=== PATIENT | male | born 1955 | race Caucasian/White ===

== ENCOUNTER 2016-05-31 10:49 | Emergency (ER) | payer BC, OTHER ==
[2016-05-31 10:58] VITALS: BP 121/75
[2016-05-31] MEDS ORDERED: ASPIRIN 81 MG TABLET, CHEWABLE PO ONE (11:17)
--- NOTE | 2016-05-31 11:19 | ER Document Report ---
ED Medical Screen (RME) - General Stated Complaint: LIGHTHEADED,ABDOMINAL PAIN Time seen by provider: 11:15 Mode of Arrival: Ambulatory Information source: Patient Notes: 60 yo male with CAD, stent lsat july, TRAVEL OUTSIDE OF THE [place] IN LAST 30 DAYS: No - Related Data Allergies/Adverse Reactions: No Known Allergies Allergy (Verified 05/31/16 11:11) Past Medical History - Past Medical History Cardiac Medical History: Reports: Hx Coronary Artery Disease, Hx Heart Attack Past Surgical History: Reports: Hx Cardiac Catheterization - steny, Hx Orthopedic Surgery - back Physical Exam - Vital signs Vitals: Temp Pulse Resp BP Pulse Ox 97.8 F 83 16 121/75 96 05/31/16 10:57 05/31/16 10:57 05/31/16 10:57 05/31/16 10:57 05/31/16 10:57 Course - Vital Signs Vital signs: Temp Pulse Resp BP Pulse Ox 97.8 F 83 16 121/75 96 05/31/16 10:57 05/31/16 10:57 05/31/16 10:57 05/31/16 10:57 05/31/16 10:57
[2016-05-31 11:34] LABS: ABSOLUTE EOSINOPHILS # (AUTO) 0.1 10^3/uL (0.0-0.6); ABSOLUTE LYMPHOCYTES (AUTO) 2.8 10^3/uL (0.5-4.7); ABSOLUTE MONOCYTES (AUTO) 0.6 10^3/uL (0.1-1.4); ABSOLUTE NEUT (AUTO) 7.1 10^3/uL (1.7-8.2); BASOPHILS % (AUTO) 0.5 % (0-2); EOSINOPHILS % (AUTO) 0.5 % (0-6); HEMATOCRIT 42.9 % (37.9-51.0); HEMOGLOBIN 14.7 g/dL (13.5-17.0); HGB HCT DIFFERENCE 1.2; LYMPHOCYTES % (AUTO) 26.2 % (13-45); MEAN CORPUSCULAR HEMOGLOBIN 32.3 pg (27.0-33.4); MEAN CORPUSCULAR HGB CONC 34.3 g/dL (32.0-36.0); MEAN CORPUSCULAR VOLUME 94 fl (80-97); MONOCYTES % (AUTO) 5.5 % (3-13); RED BLOOD COUNT 4.56 10^6/uL (4.35-5.55); RED CELL DISTRIBUTION WIDTH 13.4 % (11.5-14.0); SEGMENTED NEUTROPHILS % (AUTO) 67.3 % (42-78); WHITE BLOOD COUNT 10.6 10^3/uL (4.0-10.5)
[2016-05-31 11:55] LABS: ALANINE AMINOTRANSFERASE 37 U/L (21-72); ALBUMIN 3.9 g/dL (3.5-5.0); ALKALINE PHOSPHATASE 86 U/L (38-126); ANION GAP 10 (5-19); ASPARTATE AMINO TRANSFERASE 24 U/L (17-59); BILIRUBIN,TOTAL 1.2 mg/dL (0.2-1.3); BLOOD UREA NITROGEN 10 mg/dL (7-20); CALCIUM 9.5 mg/dL (8.4-10.2); CARBON DIOXIDE 23 mmol/L (22-30); CHLORIDE 107 mmol/L (98-107); CREATINE KINASE 171 U/L (55-170); CREATININE RESULT 0.86 mg/dL (0.52-1.25); GLUCOSE 109 mg/dL (75-110); LIPASE 31.6 U/L (23-300); POTASSIUM 4.3 mmol/L (3.6-5.0); SODIUM 140.1 mmol/L (137-145); TOTAL PROTEIN 6.5 g/dL (6.3-8.2)
[2016-05-31 11:58] LABS: APPEARANCE,URINE CLEAR; BILIRUBIN,URINE NEGATIVE (NEGATIVE); GLUCOSE, URINE NEGATIVE (NEGATIVE); KETONES,URINE 20 mg/dL (NEGATIVE); LEUKOCYTE ESTERASE,URINE NEGATIVE (NEGATIVE); NITRITE,URINE NEGATIVE (NEGATIVE); PROTEIN,URINE NEGATIVE (NEGATIVE); URINE SPECIFIC GRAVITY 1.012; UROBILINOGEN,URINE NEGATIVE mg/dL (<2.0)
[2016-05-31 12:08] LABS: TROPONIN I < 0.012 ng/mL
[2016-05-31] MEDS ORDERED: METOCLOPRAMIDE HCL ORAL SOLN 10 MG/10 ML UDCUP PO ONE (12:55)
[2016-05-31] MEDS ORDERED: MAG HYDROX/AL HYDROX/SIMETH SUSP 30 ML UDCUP PO ONE (12:55)
[2016-05-31] MEDS ORDERED: LIDOCAINE 2% VISCOUS SOLN 20 ML UDCUP PO ONE (12:56)
--- NOTE | 2016-05-31 12:59 | EKG REPORT ---
SEVERITY:- ABNORMAL ECG - SINUS RHYTHM LEFT BUNDLE BRANCH BLOCK : Confirmed by: Inocencia Feliz 31-May-2016 12:58:30
--- NOTE | 2016-05-31 13:01 | ER Document Report ---
ED GI/ - General Chief Complaint: Abdominal Pain >50 Stated Complaint: LIGHTHEADED,ABDOMINAL PAIN Time seen by provider: 12:53 Mode of Arrival: Ambulatory Notes: 60-year-old male presents to ED for abdominal pain acid reflux this spreads out across his abdomen goes up to his esophagus and then goes back down to across his chest. States he had his last good bowel movement on Monday but since then has been small bowel movements. States he gets very frustrated because every time he comes to the hospital they always want to do everything for his chest and don't examine his belly but it was wrong with his belly. TRAVEL OUTSIDE OF THE [place] IN LAST 30 DAYS: No - HPI Patient complains to provider of: Abdominal pain, Other - States he feels achy as acid reflux, and up to his throat and then down his chest and across his abdomen Onset: Last week - States it has been coming and going for several weeks Timing/Duration: Intermittent Quality of pain: Burning, Cramping Severity at maximum: Moderate Severity in ED: Mild Pain Level: 2 Location: Epigastric, LUQ, LLQ, RUQ, RLQ Associated symptoms: Chest pain - Esophageal pain, Nausea, Other - States he has a burning sharp pain that goes up his esophagus and then back down across his chest and abdomen Exacerbated by: Food Relieved by: Denies Similar symptoms previously: Yes Recently seen / treated by doctor: Yes - Related Data Allergies/Adverse Reactions: No Known Allergies Allergy (Verified 05/31/16 11:11) Past Medical History - General Information source: Patient - Social History Smoking Status: Current Every Day Smoker Cigarette use (# per day): Yes - three fourths pack per day Chew tobacco use (# tins/day): No Smoking Education Provided: Yes - less than 2 minutes Frequency of alcohol use: None Drug Abuse: None Lives with: Family Family History: Reviewed & Not Pertinent Patient has suicidal ideation: No Patient has homicidal ideation: No - Past Medical History Cardiac Medical History: Reports: Hx Coronary Artery Disease, Hx Heart Attack Pulmonary Medical History: Reports: None EENT Medical History: Reports: None Neurological Medical History: Reports: None Endocrine Medical History: Reports: None Renal/ Medical History: Reports: None GI Medical History: Reports: Hx Gastritis, Hx Gastroesophageal Reflux Disease Musculoskeltal Medical History: Reports None Skin Medical History: Reports None Psychiatric Medical History: Reports: None Traumatic Medical History: Reports: None Infectious Medical History: Reports: None Past Surgical History: Reports: Hx Cardiac Catheterization - steny, Hx Orthopedic Surgery - back Review of Systems - Review of Systems Constitutional: No symptoms reported EENT: No symptoms reported Cardiovascular: Chest pain Respiratory: No symptoms reported Gastrointestinal: Abdomen distended, Abdominal pain Genitourinary: No symptoms reported Male Genitourinary: No symptoms reported Musculoskeletal: No symptoms reported Skin: No symptoms reported Hematologic/Lymphatic: No symptoms reported Neurological/Psychological: No symptoms reported Physical Exam - Vital signs Vitals: Temp Pulse Resp BP Pulse Ox 97.8 F 83 16 121/75 96 05/31/16 10:57 05/31/16 10:57 05/31/16 10:57 05/31/16 10:57 05/31/16 10:57 Interpretation: Normal - General General appearance: Appears well, Alert - HEENT Head: Normocephalic, Atraumatic Eyes: Normal Pupils: PERRL - Respiratory Respiratory status: No respiratory distress Chest status: Nontender Breath sounds: Normal Chest palpation: Normal - Cardiovascular Rhythm: Regular Heart sounds: Normal auscultation Murmur: No - Abdominal Inspection: Normal Distension: No distension Bowel sounds: Normal Tenderness: Tender - Epigastric pain. No: McBurney's point, Lebron's sign, Guarding, Rebound Organomegaly: No organomegaly - Back Back: Normal, Nontender - Extremities General upper extremity: Normal inspection, Nontender, Normal color, Normal ROM , Normal temperature General lower extremity: Normal inspection, Nontender, Normal color, Normal ROM , Normal temperature, Normal weight bearing. No: Sarah's sign - Neurological Neuro grossly intact: Yes Cognition: Normal Orientation: AAOx4 [place] Coma Scale Eye Opening: Spontaneous Franky Coma Scale Verbal: Oriented Franky Coma Scale Motor: Obeys Commands [place] Coma Scale Total: 15 Speech: Normal Motor strength normal: LUE, RUE, LLE, RLE Sensory: Normal - Psychological Associated symptoms: Normal affect, Normal mood - Skin Skin Temperature: Warm Skin Moisture: Dry Skin Color: Normal Course - Re-evaluation Re-evalutation: 05/31/16 18:01 Discussed patient's assessment with Dr. Mensah after receiving instructions CT of the abdomen and pelvis was ordered. CT abdomen and pelvis was negative discussed the results of the CT x-ray and labs with patient and written reports given to patient and patient instructed to please follow-up with her primary doctor and GI within the next week. Patient stated he would go straight to his primary doctor on the way home and have them start a referral to GI. - Vital Signs Vital signs: Temp Pulse Resp BP Pulse Ox 97.8 F 83 16 121/75 96 05/31/16 10:57 05/31/16 10:57 05/31/16 10:57 05/31/16 10:57 05/31/16 10:57 - Laboratory Result Diagrams: 05/31/16 11:28 05/31/16 11:28 Laboratory results interpreted by me: 05/31/16 05/31/16 05/31/16 11:28 11:28 11:42 WBC 10.6 H Creatine Kinase 171 H Urine Ketones 20 H Urine Blood SMALL H - Diagnostic Test Radiology reviewed: Image reviewed, Reports reviewed Discharge - Discharge Clinical Impression: Upper abdominal pain Condition: Stable Disposition: HOME, SELF-CARE Instructions: Evaluation of Upper Abdominal Pain ([facility]) Additional Instructions: ABDOMINAL PAIN: There are many causes of abdominal pain. Pain can mean a serious problem requiring surgery (such as appendicitis). It can also be an innocent problem that goes away on its own (such as a viral infection). Often, time must pass to determine the cause of pain. The physician does not feel that hospitalization is necessary, at present. Things may change within the next 24 hours. Call the doctor or come back for re- examination if any problems occur, such as: (1) Pain that becomes more severe, steady, or becomes concentrated in one specific area. Also, pain that is more severe with movement or coughing. (2) Vomiting that persists or becomes more frequent. (3) Blood in the vomitus, urine, or bowel movements. Blood in the stool may have a tarry or black appearance. (4) Shaking chills or fever greater than 100 degrees F. (5) The abdomen becomes more distended or swollen. (6) Bowel movements cease. (7) Failure to improve as expected. Antacid Therapy You have been instructed to start antacid therapy. Antacids directly neutralize stomach acid. This is useful for acid irritation of the esophagus, gastritis, and ulcers. You should take two tablespoons of antacid one hour after each meal and three hours after each meal. If you are not eating, take the antacid every two hours. If you are using a concentrate (such as Maalox TC), use only one tablespoon. Many antacids affect the bowels. The most common problem is diarrhea. In this case, a pure aluminum hydroxide antacid (such as AlternaGel) can be substituted for some or all doses. If the problem is constipation, add a teaspoon of Milk of Magnesia to each dose. Call the doctor if you experience continued diarrhea or constipation, or if you develop lightheadedness, bloody stool or vomitus, severe abdominal pain, or black stool. ANTINAUSEA MEDICATION: You have been given a medication to suppress nausea and vomiting. This type of medication can be given as a shot, pill, or suppository. It will usually last for many hours. Pills and shots usually last six to eight hours, suppositories last about 12 hours. For the typical illness, only one or two doses of the medication may be necessary. Mild lightheadedness may occur. This type of medicine can cause drowsiness. Do not drive or operate dangerous machinery while under its influence. Do not mix with alcohol. See your doctor at once if you have muscle spasms or tightness, or uncontrollable motions (particularly of the neck, mouth, or jaw). Persistent vomiting or severe lightheadedness should also be evaluated by the physician. Reglan (Metoclopramide) Reglan has been prescribed. This medicine affects the stomach and intestines. It can be used to treat nausea and vomiting, to prevent reflux of stomach acid up into the esophagus, or to increase the contractions of the stomach and intestines. It is often prescribed for esophagitis, and for paralysis of the stomach in diabetics. Reglan can cause either mild restlessness or drowsiness. You should contact the doctor at once if you become extremely restless, anxious, or cannot sleep, or if you develop uncontrollable motions of the lips, tongue, or jaw. Do not take alcohol with this medicine. Do not drive or operate machinery until you have been taking this medicine long enough to know how it affects you. Call the doctor if you develop abdominal pains, lightheadedness, black stool, or blood in the stool or vomitus. FOLLOW-UP CARE: If you have been referred to a physician for follow-up care, call the physician s office for an appointment as you were instructed or within the next two days. If you experience worsening or a significant change in your symptoms, notify the physician immediately or return to the Emergency Department at any time for re-evaluation. You need to follow up with your primary doctor today or tomorrow and get a follow-up with a container coordinator within the next week. Prescriptions: Metoclopramide HCl [Reglan 10 mg Tablet] 10 mg PO ACHS #30 tablet Ondansetron [Zofran Odt 4 mg Tablet] 1 tab PO Q6H #15 tab.rapdis Forms: Smoking Cessation Education, Return to Work
== END 2016-05-31 14:26 | disposition home or self-care (01) ==
LOC: ER 10:49
DX: R10.10 Upper abdominal pain, unspecified (principal); R10.9 Unspecified abdominal pain; R42 Dizziness and giddiness; F17.210 Nicotine dependence, cigarettes, uncomplicated
CPT/HCPCS: 93005; 99284; 36415; 82553; 82550; 83690; 85025; 80053; 81001; 84484; 71010; 74177; 93010; J3490

== ENCOUNTER 2016-06-14 14:26 | Observation (INO) | payer OTHER ==
[2016-06-14] MEDS ORDERED: ASPIRIN 81 MG TABLET, CHEWABLE PO ONE ×2 (14:29→14:47)
--- NOTE | 2016-06-14 14:46 | ER Document Report ---
ED Medical Screen (RME) - General Stated Complaint: CHEST PAIN Notes: Patient states he started experiencing midsternal chest pain about one hour ago. Does have a cardiac history, and has [address] No nausea or vomiting. No pain radiation. Patient states pain is relieved by belching. He states he was in the emergency room 2 weeks ago for gastrointestinal problems, had an endoscopy last . Patient states he found a couple of small red spots. Patient also complains of dizziness. Patient also has a defibrillator. I have greeted and performed a rapid initial assessment of this patient. A comprehensive ED assessment and evaluation of the patient, analysis of test results and completion of the medical decision making process will be conducted by additional ED providers. TRAVEL OUTSIDE OF THE [place] IN LAST 30 DAYS: No - Related Data Allergies/Adverse Reactions: No Known Allergies Allergy (Verified 05/31/16 11:11) Past Medical History - Past Medical History Cardiac Medical History: Reports: Hx Coronary Artery Disease, Hx Heart Attack Renal/ Medical History: Denies: Hx Peritoneal Dialysis GI Medical History: Reports: Hx Gastritis, Hx Gastroesophageal Reflux Disease Past Surgical History: Reports: Hx Cardiac Catheterization - steny, Hx Orthopedic Surgery - back Physical Exam - Vital signs Vitals: Temp Pulse Resp BP Pulse Ox 98.5 F 80 18 104/64 93 06/14/16 14:34 06/14/16 14:34 06/14/16 14:34 06/14/16 14:34 06/14/16 14:34 - Cardiovascular Rhythm: Other - irregular Course - Vital Signs Vital signs: Temp Pulse Resp BP Pulse Ox 98.5 F 80 18 104/64 93 06/14/16 14:34 06/14/16 14:34 06/14/16 14:34 06/14/16 14:34 06/14/16 14:34
--- NOTE | 2016-06-14 15:03 | ER Document Report ---
ED Cardiac <ALINE ANDERSON - Last Filed: 06/14/16 16:12> - General Mode of Arrival: Ambulatory Information source: Patient TRAVEL OUTSIDE OF THE [place] IN LAST 30 DAYS: No - HPI Patient complains to provider of: Chest pain, Shortness of breath Chest pain location: Substernal - radiates to bilateral chest Chest pain precipitating factors: Physical Exertion Cardiac risk factors: Smoker, Dyslipidemia Associated symptoms: Other - see HPI <OLIVERNAS - Last Filed: 06/14/16 17:05> - General Chief Complaint: Chest Pain Stated Complaint: CHEST PAIN Notes: 60 year old male with history of hyperlipidemia, coronary artery disease, and a cardiac stent (June 2015) presents to the ED complaining of dull intermittent chest pain and shortness of breath that started this afternoon at approximately 1330. Patient reports that this morning he woke up, blew his nose, and noticed a lot of blood. Patient became lightheaded shortly after and states that he felt "fuzzy" throughout most of the day. While at work, patient was exerting himself and he suddenly became short of breath and started having substernal chest pain that radiates to the bilateral chest. Patient also complains of feeling dizzy and describes the room "spinning" while waiting in the emergency room. Patient denies vomiting, nausea, diarrhea, cough, and cold symptoms. Patient explains that this is different form his past cardiac pain because his breathing is most concerning to him. Patient is on Aspirin and Plavix, but states he did not take his Plavix today. Patient was seen on 05/31/2016 for abdominal pain and was diagnosed with gastritis. Patient receives cardiac care at [facility] from Dr. Kwok in [place], [place]. (NAS BYOD) - Related Data Allergies/Adverse Reactions: No Known Allergies Allergy (Verified 06/14/16 14:45) Past Medical History - General Information source: Patient - Social History Smoking Status: Current Every Day Smoker Chew tobacco use (# tins/day): No Frequency of alcohol use: None Drug Abuse: None Family History: Reviewed & Not Pertinent Patient has suicidal ideation: No Patient has homicidal ideation: No - Past Medical History Cardiac Medical History: Reports: Hx Coronary Artery Disease, Hx Heart Attack, Hx Hypercholesterolemia Renal/ Medical History: Denies: Hx Peritoneal Dialysis GI Medical History: Reports: Hx Gastritis, Hx Gastroesophageal Reflux Disease Past Surgical History: Reports: Hx Cardiac Catheterization - stent (June 2015) , Hx Cardiac Surgery - Defibrillator 2003 (replaced in 2009), Hx Coronary Stent - June 2015, Hx Orthopedic Surgery - back <NAS BOYD - Last Filed: 06/14/16 17:05> Review of Systems - Review of Systems Constitutional: No symptoms reported EENT: No symptoms reported Cardiovascular: See HPI, Chest pain - substernal that radiates to bilateral chest, Dizziness, Lightheaded Respiratory: See HPI, Short of breath. denies: Cough Gastrointestinal: No symptoms reported. denies: Diarrhea, Nausea, Vomiting Genitourinary: No symptoms reported Male Genitourinary: No symptoms reported Musculoskeletal: No symptoms reported Skin: No symptoms reported Hematologic/Lymphatic: No symptoms reported Neurological/Psychological: No symptoms reported -: Yes All other systems reviewed and negative <NAS BOYD - Last Filed: 06/14/16 17:05> Physical Exam - General General appearance: Alert In distress: None - HEENT Head: Normocephalic, Atraumatic Eyes: Normal Extraocular movements intact: Yes Pupils: PERRL - Respiratory Respiratory status: No respiratory distress Chest status: Nontender Breath sounds: Decreased air movement - bilaterally, Wheezing - mild wheezing bilaterally Chest palpation: Normal - no chest wall tenderness to palpation - Cardiovascular Rhythm: Regular Heart sounds: Normal auscultation - Abdominal Inspection: Normal Distension: No distension Tenderness: Nontender - Back Back: Normal - Extremities General upper extremity: Normal inspection, Normal ROM General lower extremity: Normal inspection, Normal ROM. No: Edema Calf: Normal - no calf tenderness or edema, Nontender - Neurological Neuro grossly intact: Yes Cognition: Normal Orientation: AAOx4 Franky Coma Scale Eye Opening: Spontaneous [place] Coma Scale Verbal: Oriented Franky Coma Scale Motor: Obeys Commands Franky Coma Scale Total: 15 Speech: Normal - Psychological Associated symptoms: Normal affect, Normal mood - Skin Skin Temperature: Warm Skin Moisture: Dry Skin Color: Normal <NAS BOYD - Last Filed: 06/14/16 17:05> - Vital signs Vitals: Temp Pulse Resp BP Pulse Ox 98.5 F 80 18 104/64 93 06/14/16 14:34 06/14/16 14:34 06/14/16 14:34 06/14/16 14:34 06/14/16 14:34 Course - Laboratory Result Diagrams: 06/14/16 14:50 06/14/16 14:50 - EKG Interpretation by Me Rate: Normal Rhythm: NSR, Other - PVC's [place]/QRS: LBBB When compared to previous EKG there are: No significant change <ALINE ANDERSON - Last Filed: 06/14/16 16:12> - Laboratory Result Diagrams: 06/14/16 14:50 06/14/16 14:50 - Consults Dr. Edwards Time consulted: 17:00 <NAS BOYD - Last Filed: 06/14/16 17:05> - Vital Signs Vital signs: Temp Pulse Resp BP Pulse Ox 98.5 F 80 12 116/80 95 06/14/16 14:34 06/14/16 14:34 06/14/16 16:01 06/14/16 16:01 06/14/16 16:01 - Laboratory Laboratory results interpreted by me: 06/14/16 06/14/16 14:50 14:50 RBC 4.32 L Chloride 108 H Glucose 111 H Creatine Kinase 230 H - Consults Dr. Edwards Reason for consultation: 06/14/16 17:00 Patient was discussed with Dr. Edwards and advises to keep the patient at [facility] for a cardiac stress test and will discuss a transfer if patient's cardiac enzymes are positive. (NAS BOYD) Discharge - Discharge Admitting Provider: [facility] Unit Admitted: Telemetry <ALINE ANDERSON - Last Filed: 06/14/16 16:12> <NAS BOYD - Last Filed: 06/14/16 17:05> - Discharge Clinical Impression: Chest pain Condition: Serious Disposition: ADMITTED OBSERVATION Scribe Attestation: 06/14/16 16:14 I personally performed the services described in the documentation, reviewed and edited the documentation which was dictated to the scribe in my presence, and it accurately records my words and actions. (ALINE ANDERSON) Scribe Documentation - Scribe Written by Scribe:: Duyen Muir, 06/14/2016 1532 acting as scribe for :: Nathaly <NAS BOYD - Last Filed: 06/14/16 17:05>
[2016-06-14 15:09] LABS: ABSOLUTE BASOPHILS # (AUTO) 0.1 10^3/uL (0.0-0.2); ABSOLUTE EOSINOPHILS # (AUTO) 0.1 10^3/uL (0.0-0.6); ABSOLUTE LYMPHOCYTES (AUTO) 2.5 10^3/uL (0.5-4.7); ABSOLUTE MONOCYTES (AUTO) 0.7 10^3/uL (0.1-1.4); ABSOLUTE NEUT (AUTO) 6.8 10^3/uL (1.7-8.2); BASOPHILS % (AUTO) 0.7 % (0-2); EOSINOPHILS % (AUTO) 0.7 % (0-6); HEMATOCRIT 40.7 % (37.9-51.0); HGB HCT DIFFERENCE 1.3; LYMPHOCYTES % (AUTO) 24.8 % (13-45); MEAN CORPUSCULAR HEMOGLOBIN 32.5 pg (27.0-33.4); MEAN CORPUSCULAR HGB CONC 34.5 g/dL (32.0-36.0); MEAN CORPUSCULAR VOLUME 94 fl (80-97); MONOCYTES % (AUTO) 6.9 % (3-13); RED BLOOD COUNT 4.32 10^6/uL (4.35-5.55); RED CELL DISTRIBUTION WIDTH 13.5 % (11.5-14.0); SEGMENTED NEUTROPHILS % (AUTO) 66.9 % (42-78); WHITE BLOOD COUNT 10.1 10^3/uL (4.0-10.5)
[2016-06-14 15:23] LABS: ALANINE AMINOTRANSFERASE 37 U/L (21-72); ALBUMIN 3.8 g/dL (3.5-5.0); ALKALINE PHOSPHATASE 90 U/L (38-126); ANION GAP 11 (5-19); ASPARTATE AMINO TRANSFERASE 24 U/L (17-59); BILIRUBIN,DIRECT 0.3 mg/dL (0.0-0.4); BLOOD UREA NITROGEN 12 mg/dL (7-20); CALCIUM 9.6 mg/dL (8.4-10.2); CARBON DIOXIDE 22 mmol/L (22-30); CHLORIDE 108 mmol/L (98-107); CREATINE KINASE 230 U/L (55-170); CREATININE RESULT 0.96 mg/dL (0.52-1.25); GLUCOSE 111 mg/dL (75-110); POTASSIUM 4.3 mmol/L (3.6-5.0); SODIUM 141.1 mmol/L (137-145); TOTAL PROTEIN 6.6 g/dL (6.3-8.2)
[2016-06-14 15:35] LABS: CREATINE KINASE MB 1.18 ng/mL (<4.55); TROPONIN I < 0.012 ng/mL
--- NOTE | 2016-06-14 18:26 | EKG REPORT ---
SEVERITY:- ABNORMAL ECG - ATRIAL-PACED COMPLEXES MULTIPLE VENTRICULAR PREMATURE COMPLEXES LEFT BUNDLE BRANCH BLOCK : Confirmed by: Jerrod Peña MD 14-Jun-2016 18:26:16
[2016-06-14] MEDS ORDERED: ONDANSETRON HCL INJ/PF 4 MG/2 ML SDV IV PRN (18:27)
[2016-06-14] MEDS ORDERED: ACETAMINOPHEN 325 MG TABLET PO PRN (18:27)
[2016-06-14] MEDS ORDERED: NORMAL SALINE 1000 ML 1,000 ML IV PRN (18:27)
--- NOTE | 2016-06-14 19:02 | PDOC H&P ---
History of Present Illness Admission Date/PCP: 06/14/16 16:30 JERE RAMIREZ MD Patient complains of: Chest pain History of Present Illness: JESUS HERNANDEZ is a 60 year old male, with coronary artery disease, hyperlipidemia, a chronic smoker and has been dealing with chest discomfort over a few day's duration. 2 weeks ago he was diagnosed with upper respiratory tract infection in an urgent care where he was given decongestant , ciprofloxacin, and bronchodilators. His upper respiratory tract symptoms resolve however he started to develop bloating. This was subsequently followed by burning epigastric and chest discomfort intermittently. He went back to the urgent care and the prescribed medications were discontinued. However the patient continues to have the symptoms. Patient eventually saw his primary care physician where he was given Prilosec. His stomach upset improved but he started to feel dizzy and therefore he discontinued the medication. He went to the emergency room or the patient was given antacids. The patient continues to have bloating and epigastric discomfort and burning in the chest. Patient continues to have intermittent dizzy spells especially on standing up. The patient went to the emergency room. He was referred for observation. Other associated symptoms include shortness of breath but without any nausea or vomiting nor any palpitations. Past Medical History Past Medical History: Medication reconciliation pending verification from the patient's pharmacist. Cardiac Medical History: Reports: Coronary Artery Disease, Myocardial Infarction , Hyperlipidema GI Medical History: Reports: Gastroesophageal Reflux Disease, Other - Gastritis Past Surgical History Past Surgical History: Reports: Cardiac Catheterization - stent (June 2015), Coronary Stent - June 2015, Orthopedic Surgery - back Social History Information Source: Patient Smoking Status: Current Every Day Smoker Frequency of Alcohol Use: None Hx Recreational Drug Use: No Drugs: None Family History Family History: CAD, CVA, Malignancy Parental Family History Reviewed: Yes Children Family History Reviewed: Yes Sibling(s) Family History Reviewed.: Yes Medication/Allergy Allergies/Adverse Reactions: No Known Allergies Allergy (Verified 06/14/16 14:45) Review of Systems Constitutional: ABSENT: chills, fever(s), headache(s), weakness, weight gain, weight loss Eyes: ABSENT: visual disturbances Ears: ABSENT: hearing changes Nose, Mouth, and Throat: PRESENT: other - Occasional sinus congestion. ABSENT: mouth pain, sore throat Cardiovascular: PRESENT: chest pain. ABSENT: dyspnea on exertion, edema, orthropnea, palpitations Respiratory: PRESENT: dyspnea. ABSENT: cough, hemoptysis Gastrointestinal: PRESENT: abdominal pain - Epigastric area, bloating. ABSENT: constipation, diarrhea, hematemesis, hematochezia, nausea, vomiting Genitourinary: ABSENT: dysuria, hematuria Musculoskeletal: ABSENT: joint swelling Integumentary: ABSENT: rash, wounds Neurological: ABSENT: abnormal gait, abnormal speech, confusion, dizziness, focal weakness, syncope Psychiatric: ABSENT: anxiety, depression, homidical ideation, suicidal ideation Endocrine: ABSENT: cold intolerance, heat intolerance, polydipsia, polyuria Hematologic/Lymphatic: ABSENT: easy bleeding, easy bruising Physical Exam Vital Signs: Temp Pulse Resp BP Pulse Ox 98.5 F 80 12 116/80 95 06/14/16 14:34 06/14/16 14:34 06/14/16 16:01 06/14/16 16:01 06/14/16 16:01 General appearance: PRESENT: no acute distress, cooperative, well-developed, well-nourished Head exam: PRESENT: atraumatic, normocephalic Eye exam: PRESENT: conjunctiva pink, EOMI, PERRLA. ABSENT: scleral icterus Ear exam: PRESENT: normal external ear exam. ABSENT: drainage Mouth exam: PRESENT: moist, neck supple, tongue midline Neck exam: ABSENT: carotid bruit, JVD, lymphadenopathy, thyromegaly Respiratory exam: PRESENT: clear to auscultation cesar. ABSENT: rales, rhonchi, wheezes Cardiovascular exam: PRESENT: RRR, +S1, +S2. ABSENT: diastolic murmur, rubs, systolic murmur Pulses: PRESENT: normal dorsalis pedis pul Vascular exam: PRESENT: normal capillary refill GI/Abdominal exam: PRESENT: normal bowel sounds, soft. ABSENT: distended, guarding, mass, organolmegaly, rebound, tenderness Rectal exam: PRESENT: deferred Extremities exam: PRESENT: full ROM. ABSENT: calf tenderness, clubbing, pedal edema Neurological exam: PRESENT: alert, awake, oriented to person, oriented to place , oriented to time, oriented to situation Psychiatric exam: PRESENT: appropriate affect, normal mood. ABSENT: homicidal ideation, suicidal ideation Skin exam: PRESENT: dry, intact, warm. ABSENT: cyanosis, rash Results Impressions: Chest X-Ray 06/14/16 14:29 IMPRESSION: Borderline cardiac enlargement without significant pulmonary vascular congestion. No focal infiltrate. Assessment & Plan - Diagnosis (1) Chest pain Qualifiers: Chest pain type: unspecified Qualified Code(s): R07.9 - Chest pain, unspecified Is this a current diagnosis for this admission?: Yes (2) Coronary artery disease Qualifiers: Coronary Disease-Associated Artery/Lesion type: [place] artery [place] vs. transplanted heart: [place] heart Associated angina: angina presence unspecified Qualified Code(s): I25.10 - Atherosclerotic heart disease of [place] coronary artery without angina pectoris Is this a current diagnosis for this admission?: Yes (3) Hyperlipidemia Qualifiers: Hyperlipidemia type: unspecified Qualified Code(s): E78.5 - Hyperlipidemia, unspecified Is this a current diagnosis for this admission?: Yes (4) Gastroesophageal reflux disease Qualifiers: Esophagitis presence: esophagitis presence not specified Qualified Code(s): K21.9 - Gastro-esophageal reflux disease without esophagitis Is this a current diagnosis for this admission?: Yes (5) Tobacco abuse Is this a current diagnosis for this admission?: Yes - Time Time Spent: 30 to 50 Minutes - Plan Summary Plan Summary: The patient will be admitted to observation. Patient will be on antiplatelet therapy with aspirin, as well as Plavix which he is already taking. In the meantime we will put the patient on oxygen, DVT prophylaxis with Lovenox, obtain serial cardiac enzymes and if negative proceed with a stress test. We will interrogate AICD, and consult cardiology. Further testing depends on the initial evaluation as outlined above.
[2016-06-14] MEDS ORDERED: ENOXAPARIN SODIUM INJ 40 MG/0.4 ML DISP.SYRIN SUBCUT ONE (19:30)
[2016-06-14] MEDS ORDERED: MECLIZINE HCL 12.5 MG TABLET PO PRN (20:13)
--- NOTE | 2016-06-14 20:20 | PDOC CONSULTATION ---
Consultation Consult Date: 06/14/16 Attending physician:: JERE RAMIREZ Consult reason:: Chest pain and dizziness History of Present Illness Admission Date/PCP: 06/14/16 18:27 JERE RAMIREZ MD Patient complains of: Chest pain and dizziness History of Present Illness: JESUS HERNANDEZ is a 60 year old male, with coronary artery disease, hyperlipidemia, a chronic smoker and has been dealing with chest discomfort over a few day's duration. 2 weeks ago he was diagnosed with upper respiratory tract infection in an urgent care where he was given decongestant , ciprofloxacin, and bronchodilators. His upper respiratory tract symptoms resolve however he started to develop bloating. This was subsequently followed by burning epigastric and chest discomfort intermittently. He went back to the urgent care and the prescribed medications were discontinued. However the patient continues to have the symptoms. Patient eventually saw his primary care physician where he was given Prilosec. His stomach upset improved but he started to feel dizzy and therefore he discontinued the medication. The patient continues to have bloating and epigastric discomfort and burning in the chest. Patient continues to have intermittent dizzy spells especially on standing up, symptoms of dizziness is worse preventing him from going to work. He therefore presented to the emergency room. Other associated symptoms include shortness of breath but without any nausea or vomiting nor any palpitations. This history was reviewed, confirmed and supplemented. Patient does give history of coronary stent placement, a defibrillator placement. His defibrillator was checked in June and was noted to be functioning normally. Past Medical History Cardiac Medical History: Reports: Coronary Artery Disease, Myocardial Infarction , Hyperlipidema GI Medical History: Reports: Gastroesophageal Reflux Disease, Other - Gastritis Past Surgical History Past Surgical History: Reports: Cardiac Catheterization - stent (June 2015), Coronary Stent - June 2015, Orthopedic Surgery - back Social History Information Source: Patient Smoking Status: Current Every Day Smoker Frequency of Alcohol Use: None Hx Recreational Drug Use: No Drugs: None - Advance Directive Resuscitation Status: Full Code Surrogate healthcare decision maker:: Patient's is the surrogate decision maker Family History Family History: CAD, CVA, Malignancy Parental Family History Reviewed: Yes Children Family History Reviewed: Yes Sibling(s) Family History Reviewed.: Yes - Family history of premature CAD noted Medication/Allergy Home Medications: Aspirin [Aspirin 81 mg Chewable Tablet] 81 mg PO DAILY 06/14/16 Atorvastatin Calcium 40 mg PO DAILY 06/14/16 Clopidogrel Bisulfate [Clopidogrel] 75 mg PO DAILY 06/14/16 Isosorbide Mononitrate [Isosorbide Mononitrate ER] 30 mg PO DAILY 06/14/16 Lisinopril 10 mg PO DAILY 06/14/16 Metoprolol Succinate 25 mg PO DAILY 06/14/16 Multivit-Min/FA/Lycopen/Lutein [Men 50 Plus Multivitamin Tab] 1 tab PO DAILY [place]-3/Dha/Epa/Fish Oil [Fish Oil 1,000 mg Softgel] 1,000 mg PO DAILY 06/14/16 Lansoprazole [Prevacid 30 mg Odt Tablet] 30 mg PO BID@0600,1700 #60 tab. 06/15/16 Allergies/Adverse Reactions: No Known Allergies Allergy (Verified 06/14/16 14:45) Review of Systems Review of Systems: Please see history of present illness and past medical history as wall. Constitutional: No fever or chills reported. Head : No recent chronic headaches, recent head injury. Eyes: No recent eye pain, diplopia, redness, discharge, acute visual changes. Ears: No recent chronic ear pain, acute hearing loss, ear discharge. Oral cavity: No recent ulcerations, bleeding, oral cavity discomfort. Neck: No recent acute neck pain reported. Hematologic: No recent easy bruising or bleeding or hematologic malignancy reported. Lymphatic: No recent lymphatic malignancy, chronic lymphadenopathy reported yet Cardiovascular system review: See history of present illness. Respiratory system review: No recent chronic cough, hemoptysis, blood clots in the lungs reported. Mild Shortness of breath on exertion Gastrointestinal system review: Negative for any recent acute or chronic abdominal pain, hematemesis, melena, recent change in bowel habits. Genitourinary system review: No recent acute or chronic hematuria, flank pain, UTI etc. reported. Skin system review: Negative for any recent abnormal bruising, no rash, no pruritus reported. Neurologic: No prior history of strokes, mini strokes, seizure disorder. Psychologic: No history of major psychosis or major depression reported. Musculoskeletal: Minor aches and pains reported. No acute joint swelling reported. Endocrine: No recent polyuria, polydipsia, recent heat or cold intolerance. Physical Exam Vital Signs: Temp Pulse Resp BP Pulse Ox 98.5 F 80 16 121/68 93 06/14/16 14:34 06/14/16 14:34 06/14/16 20:00 06/14/16 19:01 06/14/16 20:00 Exam: GENERAL: well-nourished and in no acute distress. Alert and oriented x3 HEAD: Atraumatic, normocephalic. EYES: Pupils equal round and reactive to light, extraocular movements intact, sclera anicteric, conjunctiva are normal. ENT: TMs normal, nares patent, oropharynx clear without exudates. Moist mucous membranes. No oral ulcerations or bleeding gums noted NECK: supple without lymphadenopathy. Trachea is central. No cervical or axillary lymphadenopathy noted. Carotids are 2+, JVD WNL LUNGS: Respiration seems nonlabored, no significant accessory muscle action noted. Breath sounds clear to auscultation bilaterally and equal noted. No wheezes rales or rhonchi noted. No significant dullness noted on percussion. CHEST: Palpation of the chest wall shows no significant chest wall tenderness. No other significant abnormalities noted. Defibrillator noted on the left side. HEART: [place] PULLER OUT, No PSH, 1/6 BARBAR[place] aortic area, 1/6 [place] systolic murmur mitral area, no rubs, no gallops. ABDOMEN: Soft, no significant tenderness appreciated, normoactive bowel sounds. No guarding, no rebound. No rigidity noted . No masses appreciated. EXTREMITIES: Pedal pulses are 1-2+, no calf tenderness noted. No clubbing or cyanosis.trace to 1+ pedal edema noted NEUROLOGICAL: Focused neurological exam showed no significant neurologic deficit. Normal speech, no focal weakness appreciated. PSYCH: Normal mood, normal affect. Judgment and insight within normal limits. SKIN: No significant ecchymosis, rash, ulcerations or signs of pruritus noted. MUSCULOSKELETAL EXAM: No significant joint swelling noted. Results Laboratory Results: 06/14/16 06/14/16 19:00 19:00 Creatine Kinase 219 H Troponin I < 0.012 EKG Comments: Atrial paced rhythm, left axis deviation, nonspecific IVCD Impressions: Chest X-Ray 06/14/16 14:29 IMPRESSION: Borderline cardiac enlargement without significant pulmonary vascular congestion. No focal infiltrate. Assessment & Plan - Diagnosis (1) Chest pain Qualifiers: Chest pain type: unspecified Qualified Code(s): R07.9 - Chest pain, unspecified Is this a current diagnosis for this admission?: Yes (2) Dizziness Is this a current diagnosis for this admission?: Yes (3) Coronary artery disease Qualifiers: Coronary Disease-Associated Artery/Lesion type: [place] artery [place] vs. transplanted heart: [place] heart Associated angina: angina presence unspecified Qualified Code(s): I25.10 - Atherosclerotic heart disease of [place] coronary artery without angina pectoris Is this a current diagnosis for this admission?: Yes (4) Gastroesophageal reflux disease Qualifiers: Esophagitis presence: esophagitis presence not specified Qualified Code(s): K21.9 - Gastro-esophageal reflux disease without esophagitis Is this a current diagnosis for this admission?: Yes (5) Hyperlipidemia Qualifiers: Hyperlipidemia type: unspecified Qualified Code(s): E78.5 - Hyperlipidemia, unspecified Is this a current diagnosis for this admission?: Yes (6) Tobacco abuse Is this a current diagnosis for this admission?: Yes - Notes Notes: Chest pain: Most likely related to underlying CAD. Patient has significant CAD and also a history of depressed LVEF. Discussed evaluation with a nuclear stress test. He is agreeable. Have also scheduled patient for a 2-D echocardiogram. Dizziness: Exact etiology not clear but could be related to inner ear problem, possible vertebrobasilar insufficiency etc. Have placed patient on meclizine on when necessary basis. Coronary artery disease: To be evaluated further with a nuclear stress test. Patient's medical regimen will be optimized. Gastroesophageal reflux disease: Patient will benefit from proton pump inhibitor or H2 blockers. Patient also advised on small meals and avoiding food item that has caused problem in the past. Hyperlipidemia: LDL goal is less than 70. Recommend statin therapy at least intermediate or high dose, of high potency status. Periodic lipid panel and liver panel is indicated. Patient to report any significant muscle discomfort or other side effects. Patient has history of chronic smoking. Discussed detrimental effect of chronic smoking including worsening COPD, increased risk of cardiovascular events, cerebrovascular events, cancer and multiple other side effects of smoking. The benefits of smoking cessation discussed. Patient unwilling to give acommitment to quit. Patient informed that we'll be happy to help should pt decide to quit. Continue nicotine patch while inpatient. Status post defibrillator placement: Patient describes this being checked 3 months ago and was functioning normally. Patient advised regular defibrillator checks. - Time Time Spent: 30 to 50 Minutes - CODE STATUS was discussed, patient remains full code. Surrogate decision-maker elevation is . Multiple medical problems were addressed.More than 50% of the time spent coordinating care, discussing management plans with involved caregivers. Management plans discussed with involved personnels. Medical decision making was of moderate complexity. Medications reviewed and adjusted accordingly: Yes
[2016-06-14] MEDS: NICOTINE 21 MG/24 HR PATCH.TD24 TD PRN (21:12)
[2016-06-14] MEDS ORDERED: ATORVASTATIN CALCIUM 80 MG TABLET PO SCH (22:00)
[2016-06-14] MEDS ORDERED: ATORVASTATIN CALCIUM 40 MG TABLET PO SCH (22:00)
[2016-06-15] MEDS ORDERED: LANSOPRAZOLE 30 MG TAB.RAP.DR PO SCH (06:00)
[2016-06-15] MEDS ORDERED: ENOXAPARIN SODIUM INJ 40 MG/0.4 ML DISP.SYRIN SUBCUT SCH (08:00)
[2016-06-15] MEDS ORDERED: OMEGA-3 ACID ETHYL ESTERS 1 GM CAPSULE PO SCH (10:00)
[2016-06-15] MEDS ORDERED: LISINOPRIL 10 MG TABLET PO SCH (10:00)
[2016-06-15] MEDS ORDERED: MULTIVITAMIN TABLET PO SCH (10:00)
[2016-06-15] MEDS ORDERED: (PENDING PHARMACY ID) (Omega-3/Dha/Epa/Fish Oil [Fish Oil 1,000 Mg Softgel] 1,000 MG) PO SCH (10:00)
[2016-06-15] MEDS ORDERED: ISOSORBIDE MONONITRATE 30 MG TAB.ER.24H PO SCH (10:00)
[2016-06-15] MEDS ORDERED: CLOPIDOGREL BISULFATE 75 MG TABLET PO SCH (10:00)
[2016-06-15] MEDS ORDERED: (PENDING PHARMACY ID) (Multivit-Min/Fa/Lycopen/Lutein [Men 50 Plus Multivitamin Tab] 1 TAB PO SCH (10:00)
[2016-06-15] MEDS ORDERED: DOCUSATE SODIUM 100 MG CAPSULE PO SCH (10:00)
[2016-06-15 10:10] LABS: MAGNESIUM 2.1 mg/dL (1.6-2.3); POTASSIUM 4.8 mmol/L (3.6-5.0)
[2016-06-15] MEDS: NICOTINE 21 MG/24 HR PATCH.TD24 TD PRN (11:54)
[2016-06-15] MEDS ORDERED: REGADENOSON INJ 0.4 MG/5 ML DISP.SYRIN IV ONE (12:16)
[2016-06-15] MEDS ORDERED: AMINOPHYLLINE INJ/PF 250 MG/10 ML SDV IV ONE (12:16)
--- NOTE | 2016-06-15 13:59 | XCELERA REPORT ---
[address] [address] Transthoracic Echocardiogram Report Name: JESUS HERNANDEZ Age: 60 yrs Gender: Male : 1955 Patient Status: Inpatient Patient Location: [id number]\S\416\S\A Study Date: 06/15/2016 09:48 AM Height: 71 in Weight: 201 lb BSA: 2.1 m2 Procedure: A complete two-dimensional transthoracic echocardiogram was performed (2D, M-mode, spectral and color flow Doppler). The study was technically difficult with many images being suboptimal in quality. Reason For Study: chest pain, CAD Ordering Physician: INOCENCIA SOLANO Performed By: Ivette Sequeira Interpretation Summary The Ejection Fraction estimate is 20-25% Left ventricular systolic function is severely reduced. Doppler measurements suggest pseudonormalized left ventricular relaxation, which is associated with grade II/IV or mild to moderate diastolic dysfunction The left ventricle is severely dilated. There is anterior wall akinesis The right ventricular systolic function is normal. The right atrium is normal in size The left atrium is mildly dilated. There is no mitral valve stenosis. There is a trace amount of mitral regurgitation No aortic regurgitation is present. There is no aortic valve stenosis There is a trace or physiologic amount of tricuspid regurgitation Tricuspid regurgitation jet envelope not well defined to measure RV systolic pressure accurately. The aortic root is not well visualized. The inferior vena cava appeared normal and decreased > 50% with respiration (RAP 5-10 mmHg) There is no pericardial effusion. MMode/2D Measurements \T\ Calculations RVDd: 2.6 cm LVIDd: 7.5 cm FS: 9.7 % Ao root diam: 3.2 cm IVSd: 0.80 cm LVIDs: 6.8 cm EDV(Teich): 300.2 ml LVPWd: 0.78 cm ESV(Teich): 238.3 ml Ao root area: 7.9 cm2 EF(Teich): 20.6 % LA dimension: 4.0 cm Doppler Measurements \T\ Calculations MV E max niels: MV P1/2t max niels: Ao V2 max: LV V1 max P.0 cm/sec 41.0 cm/sec 133.0 cm/sec 3.6 mmHg MV A max niels: MV P1/2t: 98.0 msec Ao max PG: LV V1 max: 87.9 cm/sec 7.1 mmHg 95.3 cm/sec MV E/A: 0.48 MVA(P1/2t): 2.2 cm2 MV dec slope: 122.5 cm/sec2 MV dec time: 0.32 sec PA V2 max: 100.7 cm/sec PA max P.1 mmHg Left Ventricle The left ventricle is severely dilated. There is normal left ventricular wall thickness. Left ventricular systolic function is severely reduced. The Ejection Fraction estimate is 20-25%. Doppler measurements suggest pseudonormalized left ventricular relaxation, which is associated with grade II/IV or mild to moderate diastolic dysfunction. There is anterior wall akinesis. Right Ventricle The right ventricle is grossly normal size. There is normal right ventricular wall thickness. The right ventricular systolic function is normal. Atria The right atrium is normal in size. The left atrium is mildly dilated. Interarterial septum not well visualized and not well dopplered. Cannot comment on ASD/PFO presence. Mitral Valve The mitral valve is grossly normal. There is no mitral valve stenosis. There is a trace amount of mitral regurgitation. Aortic Valve The aortic valve is grossly normal. There is no aortic valve stenosis. No aortic regurgitation is present. Tricuspid Valve The tricuspid valve is not well visualized, but is grossly normal. There is no tricuspid stenosis. There is a trace or physiologic amount of tricuspid regurgitation. Tricuspid regurgitation jet envelope not well defined to measure RV systolic pressure accurately. Pulmonic Valve The pulmonic valve is not well visualized. Great Vessels The aortic root is not well visualized. The inferior vena cava appeared normal and decreased > 50% with respiration (RAP 5-10 mmHg). Effusions There is no pericardial effusion. : INOCENCIA SOLANO > Inocencia Solano
[2016-06-15 15:51] VITALS: BP 118/71
--- NOTE | 2016-06-15 16:56 | PDOC DISCHARGE SUMMARY ---
General - Admit/Disc Date/PCP Admission Date/Primary Care Provider: 06/14/16 18:27 JERE RAMIREZ MD Discharge Date: 06/15/16 - Discharge Diagnosis (1) Chest pain Is this a current diagnosis for this admission?: Yes (2) Coronary artery disease Is this a current diagnosis for this admission?: Yes (3) Hyperlipidemia Is this a current diagnosis for this admission?: Yes (4) Gastroesophageal reflux disease Is this a current diagnosis for this admission?: Yes (5) Tobacco abuse Is this a current diagnosis for this admission?: Yes - Additional Information Resuscitation Status: Full Code Discharge Diet: Cardiac Discharge Activity: Activity As Tolerated, Balance Activity w/Rest Home Medications: Aspirin [Aspirin 81 mg Chewable Tablet] 81 mg PO DAILY 06/14/16 Atorvastatin Calcium 40 mg PO DAILY 06/14/16 Clopidogrel Bisulfate [Clopidogrel] 75 mg PO DAILY 06/14/16 Isosorbide Mononitrate [Isosorbide Mononitrate ER] 30 mg PO DAILY 06/14/16 Lisinopril 10 mg PO DAILY 06/14/16 Metoprolol Succinate 25 mg PO DAILY 06/14/16 Multivit-Min/FA/Lycopen/Lutein [Men 50 Plus Multivitamin Tab] 1 tab PO DAILY [place]-3/Dha/Epa/Fish Oil [Fish Oil 1,000 mg Softgel] 1,000 mg PO DAILY 06/14/16 Lansoprazole [Prevacid 30 mg Odt Tablet] 30 mg PO BID@0600,1700 #60 tab 06/15/16 Additional Information: Return to the emergency room if symptoms recur. History of Present Illness Patient complains of: Chest pain History of Present Illness: JESUS HERNANDEZ is a 60 year old male, with coronary artery disease, hyperlipidemia, a chronic smoker and has been dealing with chest discomfort over a few day's duration. 2 weeks ago he was diagnosed with upper respiratory tract infection in an urgent care where he was given decongestant , ciprofloxacin, and bronchodilators. His upper respiratory tract symptoms resolve however he started to develop bloating. This was subsequently followed by burning epigastric and chest discomfort intermittently. He went back to the urgent care and the prescribed medications were discontinued. However the patient continues to have the symptoms. Patient eventually saw his primary care physician where he was given Prilosec. His stomach upset improved but he started to feel dizzy and therefore he discontinued the medication. He went to the emergency room or the patient was given antacids. The patient continues to have bloating and epigastric discomfort and burning in the chest. Patient continues to have intermittent dizzy spells especially on standing up. The patient went to the emergency room. He was referred for observation. Other associated symptoms include shortness of breath but without any nausea or vomiting nor any palpitations. Hospital Course Hospital Course: The patient was admitted to telemetry. The patient was gently hydrated with intravenous fluids. Interrogation of the defibrillator was ordered. Cardiology was consulted for further evaluation. Cardiology recommended stress test and the patient had prior recent interrogation as per cardiology service. Serial enzymes were obtained and they were negative for myocardial infarction. The patient was placed on proton pump inhibitor. His symptoms resolve. Dizziness resolved as well. Echocardiogram showed an ejection fraction of 20-25 % . Stress test was eventually performed showing fixed defect as reported by cardiology service and therefore the patient was cleared to be discharged. In the event however that the patient developed recurrent chest pain, cardiology recommends seeing his [facility] in [facility] therefore catheterization. Patient reports some sinus congestion with a lot of dryness early in the morning and some fullness in the face. WBC has been normal. Patient is afebrile. Patient was advised to take [id number] antihistamines. As needed Claritin or Zyrtec. Patient was likewise advised to use saline nasal spray as often as needed. Patient improved. The rest of the hospital stays unremarkable. Physical Exam Vital Signs: Temp Pulse Resp BP Pulse Ox 98.5 F 66 16 118/71 98 06/15/16 15:48 06/15/16 15:48 06/15/16 15:48 06/15/16 15:48 06/15/16 15:48 Intake & Output 06/14/16 06/15/16 06/16/16 06:59 06:59 06:59 Intake Total 580 901 Balance 580 901 Weight 91.4 kg General appearance: PRESENT: no acute distress, cooperative Head exam: PRESENT: normocephalic Eye exam: PRESENT: EOMI Mouth exam: PRESENT: moist, neck supple Neck exam: ABSENT: JVD Respiratory exam: PRESENT: clear to auscultation cesar Cardiovascular exam: PRESENT: RRR. ABSENT: gallop GI/Abdominal exam: PRESENT: soft. ABSENT: distended, tenderness Extremities exam: ABSENT: pedal edema Neurological exam: PRESENT: alert, awake, oriented to person, oriented to place , oriented to time, oriented to situation Skin exam: PRESENT: dry, warm. ABSENT: cyanosis Results Laboratory Results: 06/15/16 08:59 06/15/16 08:59 Potassium 4.8 Magnesium 2.1 06/14/16 06/14/16 06/14/16 19:00 19:00 23:00 Creatine Kinase 219 H Troponin I < 0.012 < 0.012 06/14/16 23:00 Creatine Kinase 203 H Troponin I Impressions: Chest X-Ray 06/14/16 14:29 IMPRESSION: Borderline cardiac enlargement without significant pulmonary vascular congestion. No focal infiltrate. Qualifiers PATEINT BEING DISCHARGED WITH ANY OF THE FOLLOWING DIAGNOSIS?: No Plan Discharge Plan: Follow-up with primary care physician in one week. Follow-up with [facility] in [place] in 1-2 weeks. Time Spent: Less than 30 Minutes
--- NOTE | 2016-06-15 16:57 | DRAGON STRESS TEST REPORT ---
INTRAVENOUS LEXISCAN CARDIOLITE STRESS TEST USING SINGLE PHOTON EMMISION COMPUTERIZED TOMOGRAPHIC. DATE OF PROCEDURE: June 15, 2016 INDICATION : Chest pain CARDIAC RISK FACTORS: Hypertension, tobacco abuse, history of prior myocardial infarction. RESTING EKG: Sinus rhythm, left axis deviation, nonspecific IVCD, downsloping ST segment depression with T wave inversion in lateral chest leads STRESS EKG: No significant changes noted with LexiScan bolus REASON FOR TERMINATION: Protocol. PROCEDURE REPORT: Baseline heart rate 64 beats per minute with blood pressure of on 111/69. Patient had no significant complaints. Heart rate at 2 minutes post bolus 87 with a blood pressure of 108/55. 3 minutes post bolus heart rate 81 with blood pressure of 108/65. No significant EKG changes were noted. Patient had no significant complaints during the procedure or postprocedure. CONCLUSIONS: Normal EKG and hemodynamic response to IV LexiScan. NUCLEAR DATA: At rest the patient was given 14.73 millicuries of technetium 99 sestamibi injected intravenously. As per protocol rest gated SPECT images were obtained. Subsequently the patient was given intravenous LexiScan at a dose of 0.4 mg in 5 mL intravenously, followed by flush with normal saline. Subsequently the stress dose of 43.1 millicuries of technetium 99 sestamibi was injected intravenously. As per protocol stress gated images were obtained. NUCLEAR INTERPRETATION: Both raw and processed data were used for interpretation. Visual, qualitative, computer-generated quantitative data was used. There was good myocardial uptake of technetium compound. Motion artifact and soft tissue attenuations were noted. Increased visceral uptake was noted. No definitive areas of transient perfusion defect noted. Anterior wall, apical, inferoapical and distal inferior wall areas of severe fixed perfusion defect or scars noted. EKG gated imaging showed LV EF at 18 %, rest and stress gated EF similar visually, severe diffuse hypokinesia is noted with akinesia of the anterior wall , LV apex, inferoapex and distal inferior wall. T. I D. ratio was 1.08. Lung heart ratio noted to be within normal limits 0.31. No significant extracardiac and abnormal radiotracer activities were noted. RV free wall uptake was noted to be normal. IMPRESSION: Also refer to comments under nuclear interpretation. Also test results needs to be interpreted in the context of pretest probability. 1. There is no definitive scintigraphic evidence of LexiScan induced myocardial ischemia. 2. Anterior wall, apical, inferoapical and distal inferior wall areas of severe fixed perfusion defect or scars noted, indicative of prior myocardial infarction. 3. EKG gated imaging shows left ejection fraction of approximately 18 % severe diffuse hypokinesia is noted with akinesia of the anterior wall, LV apex, inferoapex and distal inferior wall.. 4. Clinical correlation requested as occasionally single vessel disease or balanced ischemia could be missed. In approximately 10% of the cases Lexiscan may not cause adequate vasodilatory stress. RECOMMENDATIONS: Aggressive risk factor modification, medical therapy. Low threshold for heart catheterization in view of severely depressed LVEF. Clinical correlation with echocardiogram derived ejection fraction. Inability to exercise by itself can lead to increased cardiovascular event risks. Consider cardiology consultation and or follow-up if clinically indicated. I AM AVAILABLE FOR CARDIOLOGY CONSULTATION AND FOLLOWUP IF REQUESTED BY PMMarsha Feliz M.D., [employer] Sales Consultant jazz singer, Board certified in cardiovascular diseases, Nuclear cardiology, Echocardiography Cardiac CT and cardiac MRI Ph. [phone] ERMELINDA
--- NOTE | 2016-06-15 19:19 | PDOC PROGRESS REPORT ---
Subjective Progress Note for:: 06/15/16 Subjective:: Patient seems to be doing better with gradual improvement. Pt is denying any chest arm or neck discomfort. Patient denying any PND, orthopnea. Patient denied any sustained palpitations, dizziness, syncope, near syncope. Patient denying any fever chills. Patient denying any other significant discomfort. Patient is maintaining sinus rhythm. Review of systems: Rest review of systems negative. Medications: Medications have been reviewed. Nuclear stress test procedure was explained to the patient in detail. Risks benefits were discussed and informed consent was obtained. Alternatives were discussed. Patient informed that based on risk factors, physical exam, lab data findings and symptoms there is at least intermediate probability of underlying CAD. Nuclear stress test procedure was therefore scheduled. Physical Exam Vital Signs: Temp Pulse Resp BP Pulse Ox 98.5 F 66 16 118/71 98 06/15/16 15:48 06/15/16 15:48 06/15/16 15:48 06/15/16 15:48 06/15/16 15:48 Intake & Output 06/14/16 06/15/16 06/16/16 06:59 06:59 06:59 Intake Total 580 901 Balance 580 901 Weight 91.4 kg Exam: GENERAL: well-nourished and in no acute distress. Alert and oriented x3 HEAD: Atraumatic, normocephalic. EYES: Pupils equal round and reactive to light, extraocular movements intact, sclera anicteric, conjunctiva are normal. ENT: TMs normal, nares patent, oropharynx clear without exudates. Moist mucous membranes. No oral ulcerations or bleeding gums noted NECK: supple without lymphadenopathy. Trachea is central. No cervical or axillary lymphadenopathy noted. Carotids are 2+, JVD WNL LUNGS: Respiration seems nonlabored, no significant accessory muscle action noted. Breath sounds clear to auscultation bilaterally and equal noted. No wheezes rales or rhonchi noted. No significant dullness noted on percussion. CHEST: Palpation of the chest wall shows no significant chest wall tenderness. No other significant abnormalities noted. Defibrillator noted on the left side. 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 ABDOMEN: Soft, no significant tenderness appreciated, normoactive bowel sounds. No guarding, no rebound. No rigidity noted . No masses appreciated. EXTREMITIES: Pedal pulses are 1-2+, no calf tenderness noted. No clubbing or cyanosis.trace pedal edema noted NEUROLOGICAL: Focused neurological exam showed no significant neurologic deficit. Normal speech, no focal weakness appreciated. PSYCH: Normal mood, normal affect. Judgment and insight within normal limits. SKIN: No significant ecchymosis, rash, ulcerations or signs of pruritus noted. MUSCULOSKELETAL EXAM: No significant joint swelling noted. Results Laboratory Results: 06/15/16 08:59 06/15/16 08:59 Potassium 4.8 Magnesium 2.1 06/14/16 06/14/16 06/14/16 19:00 19:00 23:00 Creatine Kinase 219 H Troponin I < 0.012 < 0.012 06/14/16 23:00 Creatine Kinase 203 H Troponin I EKG Comments: 2-D echo results and nuclear stress test results were discussed with the patient. Impressions: Chest X-Ray 06/14/16 14:29 IMPRESSION: Borderline cardiac enlargement without significant pulmonary vascular congestion. No focal infiltrate. Assessment & Plan - Diagnosis (1) Chest pain Qualifiers: Chest pain type: unspecified Qualified Code(s): R07.9 - Chest pain, unspecified Is this a current diagnosis for this admission?: Yes (2) Dizziness Is this a current diagnosis for this admission?: Yes (3) Coronary artery disease Qualifiers: Coronary Disease-Associated Artery/Lesion type: rincon artery [place] vs. transplanted heart: rincon heart Associated angina: angina presence unspecified Qualified Code(s): I25.10 - Atherosclerotic heart disease of rincon coronary artery without angina pectoris Is this a current diagnosis for this admission?: Yes (4) Gastroesophageal reflux disease Qualifiers: Esophagitis presence: esophagitis presence not specified Qualified Code(s): K21.9 - Gastro-esophageal reflux disease without esophagitis Is this a current diagnosis for this admission?: Yes (5) Hyperlipidemia Qualifiers: Hyperlipidemia type: unspecified Qualified Code(s): E78.5 - Hyperlipidemia, unspecified Is this a current diagnosis for this admission?: Yes (6) Tobacco abuse Is this a current diagnosis for this admission?: Yes (7) Cardiomyopathy Qualifiers: Cardiomyopathy type: ischemic Qualified Code(s): I25.5 - Ischemic cardiomyopathy Is this a current diagnosis for this admission?: Yes (8) Cardiac defibrillator in situ Is this a current diagnosis for this admission?: Yes - Notes Notes: Chest pain: There has been no recurrence. Cardiac enzymes have been negative. Nuclear stress test showed mainly a severe fixed defect without any areas of ischemia. Results of nuclear stress test discussed. Patient informed that if he continues to have chest pain then heart catheterization should be considered in view of severely depressed LVEF. Patient also advised aggressive risk factor modification which included quitting smoking, good control of blood pressure, avoiding strenuous exercise and also having a sleep study done. Patient definitely does not want to quit smoking. Dizziness: This has improved. Exact etiology not clear. Coronary artery disease: Stress test result discussed. Patient advised risk factor modification. Dyslipidemia: Discussed aggressive lipid lowering with LDL goal being less than 70, triglycerides goal being less than 150. Tobacco abuse: Patient advised in tobacco cessation. Cardiomyopathy: Patient noted to have ischemic cardiomyopathy from previous myocardial infarction. Patient's medical regimen will be optimized. Patient has a defibrillator in situ - Time Time with patient: Greater than 35 minutes - Patient was seen multiple times. Total time exceeds 40 minutes. In the morning nuclear stress test procedure, risks benefits, alternatives were discussed. Patient seen during the stress test. Patient also seen after stress test when results were discussed with the patient in detail. Patient's questions were answered. Nuclear stress test results were discussed with the patient. Patient was informed that no definitive evidence of pharmacologic stress-induced ischemia noted. Large area of severe fixed defects were noted. It may also be worthwhile to consider evaluation or empiric management of other causes of chest pain. Should no other cause be found and if persistent in having chest pain, then cardiac catheterization should be strongly considered. Patient advised close cardiology follow-up. Medications reviewed and adjusted accordingly: Yes
== END 2016-06-15 16:14 | disposition home or self-care (01) ==
LOC: ER 14:26 → UNDOADMOB 16:30 → EH 16:30 → 4W 20:35
DX: R07.89 Other chest pain (principal); I25.10 Atherosclerotic heart disease of native coronary artery without angina pectoris; E78.5 Hyperlipidemia, unspecified; K21.9 Gastro-esophageal reflux disease without esophagitis; Z72.0 Tobacco use; I25.2 Old myocardial infarction; Z95.5 Presence of coronary angioplasty implant and graft
CPT/HCPCS: 93005; 99285; 36415 ×2; 82553; 82550; 83690; 83735; 84132; 85025; 80053; 84484; 93306; 93017; 71020; 78452; 93010; G0378 ×3; A9500; J2785; J3490 ×2; J0280; Q9969

== ENCOUNTER 2017-06-02 18:53 | Emergency (ER) | payer OTHER ==
[2017-06-02] MEDS ORDERED: ACETAMINOPHEN 325 MG TABLET PO ONE (19:08)
[2017-06-02] MEDS ORDERED: DICYCLOMINE HCL 20 MG TABLET PO ONE (20:41)
--- NOTE | 2017-06-02 20:47 | ER Document Report ---
ED General - General Chief Complaint: Flu Symptoms Stated Complaint: FEVER,CHILLS,COUGH Time Seen by Provider: 06/02/17 20:28 Notes: 61-year-old male here with complaints of epigastric abdominal pain fevers chills that started yesterday after he ate some steak. He then had another episode earlier today after he ate a cheese steak. He then later ate some popcorn and started to have some very severe chills. No nausea vomiting diarrhea. He adamantly denies any chest pain shortness of breath cough congestion. He did take some aspirin around 3-4 hours ago which helped with his symptoms tremendously. He states that he now feels almost completely better. Still has gallbladder and appendix. TRAVEL OUTSIDE OF THE [place] IN LAST 30 DAYS: No - Related Data Allergies/Adverse Reactions: No Known Allergies Allergy (Verified 06/02/17 18:58) Past Medical History - Social History Smoking Status: Current Every Day Smoker Chew tobacco use (# tins/day): No Frequency of alcohol use: None Drug Abuse: None Family History: CAD, CVA, Malignancy Patient has suicidal ideation: No Patient has homicidal ideation: No - Past Medical History Cardiac Medical History: Reports: Hx Coronary Artery Disease, Hx Heart Attack, Hx Hypercholesterolemia Pulmonary Medical History: Reports: Hx COPD Renal/ Medical History: Denies: Hx Peritoneal Dialysis GI Medical History: Reports: Hx Gastritis, Hx Gastroesophageal Reflux Disease Past Surgical History: Reports: Hx Cardiac Catheterization - stent (June 2015) , Hx Cardiac Surgery - Defibrillator 2003 (replaced in 2009), Hx Coronary Stent - June 2015, Hx Orthopedic Surgery - back - Immunizations Hx Diphtheria, Pertussis, Tetanus Vaccination: Yes Review of Systems - Review of Systems Notes: See history of present illness for pertinent positive review of systems; otherwise all review of systems have been reviewed and are negative Physical Exam - Vital signs Vitals: Temp Pulse Resp BP Pulse Ox 103 F H 101 H 18 128/54 H 96 06/02/17 19:07 06/02/17 19:07 06/02/17 19:07 06/02/17 19:07 06/02/17 19:07 - Notes Notes: PHYSICAL EXAMINATION: GENERAL: Well-appearing and in no acute distress. Nontoxic appearing. HEAD: Atraumatic, normocephalic. EYES: Pupils equal round and reactive to light, extraocular movements intact, sclera anicteric, conjunctiva are normal. ENT: nares patent, oropharynx clear without exudates. Moist mucous membranes. NECK: Normal range of motion, supple without lymphadenopathy LUNGS: CTAB and equal. No wheezes rales or rhonchi. HEART: Regular rate (no tachycardia as recorded in the chart) and rhythm without murmurs ABDOMEN: Soft, no tenderness. No guarding, no rebound EXTREMITIES: Normal range of motion, no pitting edema. No cyanosis. NEUROLOGICAL: Cranial nerves grossly intact. Normal sensory/motor exams. PSYCH: Normal mood, normal affect. SKIN: Warm, Dry, normal turgor, no rashes or lesions noted Course - Re-evaluation Re-evalutation: 06/02/17 20:45 MEDICAL DECISION MAKING: Concern for gastroenteritis cholecystitis versus pancreatitis Patient states he feels much better and would like to go home I discussed with him that we would be more than happy to run blood work and "take some pictures" to evaluate abdomen He declines this diagnostic workup and would like to go home and discussed we would be happy to see him if he change his mind I will prescribe him Bentyl Zofran Patient understands and agrees to the plan of care At discharge, tachycardia resolved and blood pressure 101 systolic - Vital Signs Vital signs: Temp Pulse Resp BP Pulse Ox 99.7 F 82 18 101/52 L 95 06/02/17 20:39 06/02/17 20:39 06/02/17 20:39 06/02/17 20:39 06/02/17 20:39 Discharge - Discharge Clinical Impression: Fever Qualifiers: Fever type: unspecified Qualified Code(s): R50.9 - Fever, unspecified Condition: Good Disposition: HOME, SELF-CARE Additional Instructions: You declined blood work. Use the prescribed medications as needed for your symptoms. You were seen in the emergency department at [facility]. If you were given any sedating medications, be sure not to operate heavy machinery (example - driving) and be sure you are not too sedated to walk appropriately. Please followup with your primary physician in the next few days for further management/evaluation. Please return to the emergency department for worsening of symptoms or any symptom that you deem to be concerning or life-threatening. Thank you for allowing us to be part of your care. Prescriptions: Dicyclomine HCl [Bentyl 20 mg Tablet] 20 mg PO QID #40 tablet Ondansetron [Zofran Odt 4 mg Tablet] 1 - 2 tab PO Q4H PRN #15 tab.rapdis PRN Reason: For Nausea/Vomiting
[2017-06-02 20:58] VITALS: BP 128/54
== END 2017-06-02 20:52 | disposition home or self-care (01) ==
LOC: ER 18:53
DX: R50.9 Fever, unspecified (principal); R05 Cough; R10.13 Epigastric pain; F17.200 Nicotine dependence, unspecified, uncomplicated
CPT/HCPCS: 99283; J3490

== ENCOUNTER → 2018-05-07 | Outpatient (CLI) | payer OTHER | LOC: OD 11:21 | PROVIDERS: ATTEND Otolaryngology | DX: J30.9 Allergic rhinitis, unspecified (principal) | CPT/HCPCS: 36415; 82785; 86003 ==

== ENCOUNTER 2019-11-24 11:51 | Emergency (ER) | payer OTHER ==
--- NOTE | 2019-11-24 12:42 | ER Document Report ---
ED Medical Screen (RME) - General Chief Complaint: Palpitations Stated Complaint: HEART PALPITATIONS Time Seen by Provider: 11/24/19 12:40 Primary Care Provider: DARWIN ORTIZ MD [Primary Care Provider] - Follow up as needed Mode of Arrival: Wheelchair Information source: Patient Notes: Patient presents complaining of chest pain that he describes as a tightness ac ross his entire chest that started yesterday. Patient reports feeling lightheaded with mild shortness of breath. Patient denies any nausea or vomiting. Patient does have a history of CAD with stents x2 and a defibrillator. Patient also has a history of COPD. I have greeted and performed a rapid initial assessment of this patient. A comprehensive ED assessment and evaluation of the patient, analysis of test results and completion of the medical decision making process will be conducted by additional ED providers. TRAVEL OUTSIDE OF THE [place] IN LAST 30 DAYS: No - Related Data Allergies/Adverse Reactions: No Known Allergies Allergy (Verified 11/24/19 12:37) Past Medical History - Past Medical History Cardiac Medical History: Reports: Hx Coronary Artery Disease, Hx Heart Attack, Hx Hypercholesterolemia Pulmonary Medical History: Reports: Hx COPD Renal/ Medical History: Denies: Hx Peritoneal Dialysis GI Medical History: Reports: Hx Gastritis, Hx Gastroesophageal Reflux Disease Past Surgical History: Reports: Hx Cardiac Catheterization - stent (June 2015), Hx Cardiac Surgery - Defibrillator 2003 (replaced in 2009), Hx Coronary Stent - June 2015, Hx Orthopedic Surgery - back - Immunizations Hx Diphtheria, Pertussis, Tetanus Vaccination: Yes Physical Exam - Vital signs Vitals: Temp Pulse Resp BP Pulse Ox 98.3 F 88 18 102/69 93 11/24/19 12:18 11/24/19 12:18 11/24/19 12:18 11/24/19 12:18 11/24/19 12:18 - Respiratory Respiratory status: No respiratory distress Chest status: Tender Chest palpation: Normal. No: Tender - Cardiovascular Rhythm: Regular Heart sounds: S1 appreciated, S2 appreciated Murmur: No Course - Vital Signs Vital signs: Temp Pulse Resp BP Pulse Ox 98.3 F 88 18 102/69 93 11/24/19 12:18 11/24/19 12:18 11/24/19 12:18 11/24/19 12:18 11/24/19 12:18 Doctor's Discharge - Discharge Referrals: DARWIN ORTIZ MD [Primary Care Provider] - Follow up as needed
--- NOTE | 2019-11-24 13:18 | RADIOLOGY REPORT (SQ) ---
EXAM DESCRIPTION: CHEST 2 VIEWS IMAGES COMPLETED DATE/TIME: 11/24/2019 1:10 pm REASON FOR STUDY: cp COMPARISON: Chest radiograph 06/14/2016 TECHNIQUE: Frontal and lateral radiographic views of the chest acquired. NUMBER OF VIEWS: Two view. LIMITATIONS: None. FINDINGS: LUNGS AND PLEURA: No opacities, masses or pneumothorax. No pleural effusion. MEDIASTINUM AND HILAR STRUCTURES: No masses or contour abnormalities. HEART AND VASCULAR STRUCTURES: Heart normal size. No evidence for failure. Left chest wall cardiac pacing device is present with leads terminating over the right atrium and right ventricle. BONES: No acute findings. HARDWARE: None in the chest. Fusion hardware projects over the lower cervical spine. OTHER: No other significant finding. IMPRESSION: No acute pulmonary process. TECHNICAL DOCUMENTATION: JOB ID: [id number] 2010 [employer]- All Rights Reserved Reading location - IP/workstation name: [email or web address]
[2019-11-24 14:00] LABS: ABSOLUTE BASOPHILS # (AUTO) 0.1 10^3/uL (0.0-0.2); ABSOLUTE LYMPHOCYTES (AUTO) 1.7 10^3/uL (0.5-4.7); ABSOLUTE MONOCYTES (AUTO) 0.5 10^3/uL (0.1-1.4); ABSOLUTE NEUT (AUTO) 6.4 10^3/uL (1.7-8.2); BASOPHILS % (AUTO) 0.7 % (0-2); EOSINOPHILS % (AUTO) 0.2 % (0-6); HEMATOCRIT 43.6 % (37.9-51.0); HEMOGLOBIN 15.1 g/dL (13.5-17.0); LYMPHOCYTES % (AUTO) 19.5 % (13-45); MEAN CORPUSCULAR HEMOGLOBIN 33.1 pg (27.0-33.4); MEAN CORPUSCULAR HGB CONC 34.7 g/dL (32.0-36.0); MEAN CORPUSCULAR VOLUME 95 fl (80-97); MONOCYTES % (AUTO) 5.9 % (3-13); PLATELET COUNT 250 10^3/uL (150-450); RED BLOOD COUNT 4.57 10^6/uL (4.35-5.55); RED CELL DISTRIBUTION WIDTH 13.7 % (11.5-14.0); SEGMENTED NEUTROPHILS % (AUTO) 73.7 % (42-78); TOTAL CELLS COUNTED % (AUTO) 100 %; WHITE BLOOD COUNT 8.6 10^3/uL (4.0-10.5)
[2019-11-24 14:11] LABS: ALBUMIN 3.9 g/dL (3.5-5.0); ALKALINE PHOSPHATASE 80 U/L (38-126); ANION GAP 8 (5-19); ASPARTATE AMINO TRANSFERASE 21 U/L (17-59); BILIRUBIN,DIRECT 0.2 mg/dL (0.0-0.4); BILIRUBIN,TOTAL 1.1 mg/dL (0.2-1.3); BLOOD UREA NITROGEN 14 mg/dL (7-20); CALCIUM 9.1 mg/dL (8.4-10.2); CARBON DIOXIDE 24 mmol/L (22-30); CHLORIDE 109 mmol/L (98-107); GLUCOSE 120 mg/dL (75-110); POTASSIUM 4.6 mmol/L (3.6-5.0); TOTAL PROTEIN 6.5 g/dL (6.3-8.2)
[2019-11-24 14:22] LABS: NT PRO BNP 883 pg/mL (<125)
[2019-11-24 14:26] LABS: TROPONIN I < 0.012 ng/mL
--- NOTE | 2019-11-24 17:45 | ER Document Report ---
ED General - General Chief Complaint: Chest Pain Stated Complaint: HEART PALPITATIONS Time Seen by Provider: 11/24/19 12:40 Primary Care Provider: DARWIN ORTIZ MD [Primary Care Provider] - Follow up as needed Mode of Arrival: Wheelchair Notes: HPI: 64-year-old male who presents today stating for 1 week he has had some intermittent epigastric discomfort radiating to his chest only after eating. He denies any nausea, vomiting, diaphoresis, shortness of breath, cough, calf pain or leg swelling, recent trips or travel. Patient has 2 cardiac stents. Patient has a defibrillator. Patient 3 weeks ago had his Entresto increased by his control tower radio operator. A week later he had his metoprolol increased. He started to feel little lightheaded 2 weeks ago so his control tower radio operator decreased his Entresto. Patient has a history of acid reflux. He denies any other real aggravating relieving factors. ROS: See HPI All other review of systems reviewed and otherwise negative Reviewed vital signs and nursing note as charted by RN. PHYSICAL EXAM: CONSTITUTIONAL: Alert and oriented and responds appropriately to questions. Well-appearing; well-nourished HEAD: Normocephalic; atraumatic EYES: Sclerae non-icteric ENT: Normal nose; no rhinorrhea; moist mucous membranes; pharynx without lesions noted NECK: Supple without meningismus; non-tender; no cervical lymphadenopathy, no masses CARD: Regular rate and rhythm; no murmurs; symmetric distal pulses RESP: Normal chest excursion without splinting or tachypnea; breath sounds clear and equal bilaterally ABD/GI: Normal bowel sounds; non-distended; soft, non-tender currently to deep palpation of all 4 quadrants of the abdomen BACK: The back appears normal and is non-tender to palpation EXT: Normal ROM in all joints; non-tender to palpation; no edema SKIN: No acute lesions noted NEURO: CN 2-12 intact; 5/5 bilateral upper and lower extremity strength with sensation intact to light touch PSYCH: The patient's mood and manner are appropriate. Grooming and personal hygiene are appropriate. TRAVEL OUTSIDE OF THE [place] IN LAST 30 DAYS: No - Related Data Allergies/Adverse Reactions: No Known Allergies Allergy (Verified 11/24/19 12:37) Past Medical History - General Information source: Patient - Social History Smoking Status: Current Every Day Smoker Family History: CAD, CVA, Malignancy Patient has homicidal ideation: No - Past Medical History Cardiac Medical History: Reports: Hx Coronary Artery Disease, Hx Heart Attack, Hx Hypercholesterolemia Pulmonary Medical History: Reports: Hx COPD Renal/ Medical History: Denies: Hx Peritoneal Dialysis GI Medical History: Reports: Hx Gastritis, Hx Gastroesophageal Reflux Disease Past Surgical History: Reports: Hx Cardiac Catheterization - stent (June 2015), Hx Cardiac Surgery - Defibrillator 2003 (replaced in 2009), Hx Coronary Stent - June 2015, Hx Orthopedic Surgery - back - Immunizations Hx Diphtheria, Pertussis, Tetanus Vaccination: Yes Physical Exam - Vital signs Vitals: Temp Pulse Resp BP Pulse Ox 98.3 F 88 18 102/69 93 11/24/19 12:18 11/24/19 12:18 11/24/19 12:18 11/24/19 12:18 11/24/19 12:18 Course - Re-evaluation Re-evalutation: Given the above history and physical examination we will obtain A cardiac panel, EKG, lipase, liver enzymes, and reassess the abdomen. Patient symptoms have been intermittent for 1 week. He states it is only after he eats. History of reflux. He has seen the control tower radio operator and has spoken to them over the phone doing multiple medication changes including a medication change yesterday. Patient has no shortness of breath, calf pain, leg swelling. I do believe PE and dissection to be extremely unlikely. Despite the association with food with the epigastric discomfort after eating, given the patient's cardiac history we will obtain a cardiac panel. EKG shows a heart rate of 90, left bundle branch block, PVCs present. Previous EKG obtained from June 14, 2016 showing a left bundle branch block with multiple PVCs. 11/24/19 17:44 Initial labs as recorded. 11/24/19 18:15 Lipase as recorded. Patient denies any pain at this time. GI cocktail has been provided. Patient has no tenderness on repeat abdominal exam. Patient has excellent close cardiology follow-up. Given the above history and physical this does sound much more reflux than cardiac in nature. Given the 1 week of symptoms, do not believe a repeat troponin is beneficial. I will discharge the patient home with strict return precautions and follow-up with the primary doctor as well as with a wax cutter. Patient supposedly drinks a "gallon" of coffee a day. He understands that this may exacerbate irritation to the stomach and small intestine. - Vital Signs Vital signs: Temp Pulse Resp BP Pulse Ox 98.9 F 88 15 106/72 94 11/24/19 17:16 11/24/19 12:18 11/24/19 17:16 11/24/19 17:16 11/24/19 17:16 - Laboratory Result Diagrams: 11/24/19 13:21 11/24/19 13:21 Laboratory results interpreted by me: 11/24/19 11/24/19 13:21 13:21 Chloride 109 H Glucose 120 H NT-Pro-B Natriuret Pep 883 H Discharge - Discharge Clinical Impression: Epigastric discomfort, Atypical chest pain Condition: Good Disposition: HOME, SELF-CARE Additional Instructions: Come back immediately for any increased pain, change in location or quality of pain, fevers or vomiting, leg swelling, shortness of breath, or any other acute problems. Please follow-up with your primary care physician/control tower radio operator as well as the wax cutter we have discussed. Referrals: DARWIN ORTIZ MD [Primary Care Provider] - Follow up as needed NANCY ADAMS MD [ACTIVE STAFF] - Follow up as needed
[2019-11-24] MEDS ORDERED: LIDOCAINE 2% VISCOUS SOLN 15 ML UDCUP PO ONE (17:59)
[2019-11-24] MEDS ORDERED: METOCLOPRAMIDE HCL ORAL SOLN 10 MG/10 ML UDCUP PO ONE (17:59)
[2019-11-24] MEDS ORDERED: MAG HYDROX/AL HYDROX/SIMETH SUSP 30 ML UDCUP PO ONE (17:59)
[2019-11-24 18:44] VITALS: BP 116/77
--- NOTE | 2019-11-24 20:53 | EKG REPORT ---
SEVERITY:- ABNORMAL ECG - SINUS RHYTHM VENTRICULAR PREMATURE COMPLEX LEFT BUNDLE BRANCH BLOCK : Confirmed by: Lainey Brothers MD 24-Nov-2019 20:52:58
== END 2019-11-24 18:39 | disposition home or self-care (01) ==
LOC: ER 11:51
DX: R10.13 Epigastric pain (principal); R07.89 Other chest pain; R00.2 Palpitations; R42 Dizziness and giddiness; F17.200 Nicotine dependence, unspecified, uncomplicated; I25.10 Atherosclerotic heart disease of native coronary artery without angina pectoris; I25.2 Old myocardial infarction; J44.9 Chronic obstructive pulmonary disease, unspecified
CPT/HCPCS: 93005; 99285; 36415; 83690; 83735; 85025; 80053; 84484; 83880; 71046; 93010; J3490